=== PATIENT | female | born 1990 | race Caucasian/White ===

== ENCOUNTER 2016-05-07 17:18 | Emergency (ER) | payer OTHER ==
[~2016-05-07] VITALS: Ht 167.6 cm; Wt 79.1 kg
[2016-05-07 18:08] VITALS: TEMP 36.9; Ht 167.6 cm; Wt 79.1 kg
[2016-05-07] MEDS ORDERED: MULT-513 PO (19:08)
--- NOTE | 2016-05-07 19:08 | EMERGENCY ROOM VISIT NOTE ---
ED Visit Note First contact with patient: 18:57 CHIEF COMPLAINT: Wrist injury HISTORY OF PRESENT ILLNESS: This 25-year-old female patient presents to the emergency department ambulatory complaining of pain in the right wrist after falling while snowboarding onto an outstretched hand. The patient is able to move their wrist. The patient states the pain is sharp and 3/10. No laceration, no weakness. No numbness or tingling. The patient denies any other injury. The patient is able to move their fingers and elbow without difficulty. The patient had a very similar injury one year ago while snowboarding which resulted in a distal radius fracture and she saw Dr. Morton. The patient has taken nothing for the pain. REVIEW OF SYSTEMS: A 6 system review of systems was performed with positives and pertinent negatives in the HPI. ALLERGIES: No known drug allergies MEDICATIONS: None PMH: Patient denies SOCIAL HISTORY: The patient is a student PHYSICAL EXAM: Vital Signs: Reviewed Nurse's notes, vital signs stable. GENERAL : This is a 25-year-old female, in no acute distress, but appears to be in pain , well-developed, well-nourished. NEURO: Alert and oriented to person place and time. Normal sensation to light and sharp touch. MUSCULOSKELETAL: There is no deformity of the right wrist. There is no erythema and no ecchymosis. There is mild edema. Tenderness over distal radius. There is no snuff box tenderness. There is tenderness with any movement. Range of motion is decreased secondary to pain. There is no tenderness of the elbow, hand or fingers. Configuration Technician strength 5/ 5. Radial pulse 2+. SKIN: Normal and intact. The hand is warm and well perfused with capillary refill less than 2 seconds. EMERGENCY DEPARTMENT COURSE: I examined the patient. An X-ray of the right wrist was reviewed by myself and radiology and showed distal radius fracture. A sugar tong Ortho-Glass splint was placed under my direction and the position was satisfactory. Neurovascular status rechecked and intact. The patient was discharged home in good condition. She was given a take-home pack of Isabel as well as a prescription She has seen Dr. Morton in the past and is encouraged to contact the office for a follow-up appointment DISCHARGE INSTRUCTIONS & TREATMENT: Wear the splint until seen by orthopedics. Do not get the splint wet. Ibuprofen 600 mg every 6-8 hours for moderate pain. Isabel 1 tablet every 6 Hours if needed for worse pain. Do not drink or drive while taking Isabel and do not take with Tylenol.to contact orthopedics first thing in the morning to schedule a follow-up appointment for further evaluation and management. Return with any worsening symptoms. RIGHT WRIST 5 VIEWS HISTORY: right wrist pain Right COMPARISON: Right wrist 04/04/2015. FINDINGS: There is an acute fracture of the distal right radius which demonstrates intra-articular extension. The distal ulna and carpal bones appear intact. Soft tissue swelling. The fracture demonstrates 2 mm of dorsal displacement. No radiopaque foreign bodies. IMPRESSION: An acute distal right radius fracture as described above. Current/Historical Medications Scheduled Multivitamins/Minerals (Mvi With Minerals), 2 TAB PO DAILY Scheduled PRN Hydrocodone/Acetaminophen 5MG/325MG (Isabel 5MG/325MG), 1 TABLET PO Q4H PRN for Pain Allergies Coded Allergies: Cat Dander (Verified Allergy, Unknown, ., 04/04/15) Dog Dander (Verified Allergy, Unknown, ., 04/04/15) Vital Signs Date Time Temp Pulse Resp B/P Pulse Ox O2 Delivery O2 Flow Rate FiO2 05/07/16 19:23 77 20 139/88 95 05/07/16 18:08 36.9 77 20 137/77 95 Room Air Medications Administered Medications (Trade) Dose Ordered Sig/Emmanuel Route Start Time Stop Time Status Last Admin Dose Admin Acetaminophen/ Hydrocodone Bitart (Isabel 5/325mg Home Pack) 1 homepack UD ONCE PO 05/07/16 19:15 05/07/16 19:16 DC 05/07/16 19:20 1 HOMEPACK Departure Information Impression Primary Impression: Distal radius fracture, right Dispostion Home / Self-Care Condition GOOD Prescriptions Hydrocodone/Acetaminophen 5MG/325MG (Isabel 5MG/325MG) Tab 1 TABLET PO Q4H Y for Pain, #12 TAB For Initial Treatment Prov: Tiffani Wall PA-C 05/07/16 Referrals No Doctor, Assigned (PCP) Taran Morton M.D. Patient Instructions ED Fx Forearm Radius Ulna No Redu Requ, My [facility] Additional Instructions Wear the splint until seen by orthopedics. Do not get the splint wet. Ibuprofen 600 mg every 6-8 hours for moderate pain. Isabel 1 tablet every 6 Hours if needed for worse pain. Do not drink or drive while taking Isabel and do not take with Tylenol.to contact orthopedics first thing in the morning to schedule a follow-up appointment for further evaluation and management. Return with any worsening symptoms. Problem Qualifiers Primary Impression: Distal radius fracture, right Encounter type: initial encounter Fracture type: closed
--- NOTE | 2016-05-07 19:12 | DIAGNOSTIC IMAGING REPORT ---
RIGHT WRIST 5 VIEWS HISTORY: right wrist pain Right COMPARISON: Right wrist 04/04/2015. FINDINGS: There is an acute fracture of the distal right radius which demonstrates intra-articular extension. The distal ulna and carpal bones appear intact. Soft tissue swelling. The fracture demonstrates 2 mm of dorsal displacement. No radiopaque foreign bodies. IMPRESSION: An acute distal right radius fracture as described above. Electronically signed by: Derian Rocha M.D. 05/07/2016 7:11 PM Dictated Date/Time: 05/07/2016 7:09 PM
[2016-05-07] MEDS ORDERED: NORCO 5/325MG HOME PACK PO ONE (19:15)
[2016-05-07] MEDS ORDERED: HYDR-5688 PO (19:21)
[2016-05-07 19:23] VITALS: BP 139/88; PULSE 77; O2SAT 95
== END 2016-05-07 19:23 | disposition home or self-care (01) ==
LOC: C.EDB 17:18 → C.EDD 19:23
DX: S52.501A Unspecified fracture of the lower end of right radius, initial encounter for closed fracture (principal); W18.39XA Other fall on same level, initial encounter; Y93.23 Activity, snow (alpine) (downhill) skiing, snowboarding, sledding, tobogganing and snow tubing